=== PATIENT | male | born 1990 | race Caucasian/White ===

== ENCOUNTER 2016-12-21 19:52 | Emergency (ER) | payer BC ==
[~2016-12-21] VITALS: Ht 198.1 cm; Wt 81.3 kg
[2016-12-21 21:17] LABS: HEMATOCRIT 37.4 % (38.0-50.0); MCH 27.7 PG (29.0-34.0); MCHC 31.8 G/DL (30.0-36.0); MEAN PLAT.VOLUME 10.2 uM^3 (9.0-12.4); PLATELET COUNT 265 K/uL (156-360); RBC DIS.WIDTH-CV 12.5 % (11.8-14.6); RBC DIS.WIDTH-SD 39.9 % (39-53); WHITE BLOOD COUNT 7.4 K/uL (4.1-10.2)
[2016-12-21 21:29] LABS: CHLORIDE 103 mEq/L (99-109); POTASSIUM 3.7 mEq/L (3.7-5.4); SODIUM 139 mEq/L (136-147)
[2016-12-21 21:31] LABS: GLUCOSE 88 mg/dL (70-99)
[2016-12-21 21:32] LABS: ANION GAP 9 MEQ/L (2-14)
[2016-12-21 21:33] LABS: TOTAL BILIRUBIN 0.5 mg/dL (0.0-1.0)
[2016-12-21 21:35] LABS: ALKALINE PHOSPHATASE 81 IU/L (3-129); GFR ESTIMATE (CALCULATED) > 59 mL/min/
[2016-12-21 21:36] LABS: UREA NITROGEN (BUN) 17 mg/dL (9-23)
[2016-12-21 21:38] LABS: URIC ACID 3.1 mg/dL (3.1-9.2)
[2016-12-21] MEDS ORDERED: CLEOCIN300 MG PO (22:35)
[2016-12-21 23:40] VITALS: BP 112/63
[2016-12-22 02:33] LABS: C-REACTIVE PROTEIN 152.7 MG/L (0-10); SAMPLE HEMOLYSIS CHECK 0; SAMPLE ICTERIC CHECK 0; SAMPLE LIPEMIA CHECK 0
== END 2016-12-21 23:57 | disposition home or self-care (01) ==
LOC: EME 19:52
PROVIDERS: Physician Assistant
DX: L03.116 Cellulitis of left lower limb (principal); M79.89 Other specified soft tissue disorders
CPT/HCPCS: 73610; 73630; 80053; 83605; 84550; 85027; 86140; 87040; 93971; 99281; 99284